=== PATIENT | female | born 1945 | race Caucasian/White ===

== ENCOUNTER 2018-06-21 12:12 | Inpatient (IN) | payer MEDICARE | END 2018-06-25 11:35 | disposition home or self-care (01) | LOC: EDH 12:12 → 2DH 06-22 11:57 → 3BH 06-23 20:07 → EDHIP 15:48 → 2BH 19:09 | DX: G81.91 Hemiplegia, unspecified affecting right dominant side (principal); N39.0 Urinary tract infection, site not specified; G56.01 Carpal tunnel syndrome, right upper limb; R31.0 Gross hematuria ==

== ENCOUNTER 2021-04-08 15:48 | Emergency (ER) | payer MEDICARE ==
[~2021-04-08] VITALS: Ht 157.5 cm; Wt 73.0 kg
[~2021-04-08 15:48] MED LIST: ALPR0.255 PO; ASPI-556 PO; CARV25TA PO; CEFD300C3 PO; CLOP75TA14 PO; ROSU10TA28 PO
[2021-04-08 16:31] VITALS: BP 139/53
== END 2021-04-08 16:57 | disposition home or self-care (01) ==
LOC: EDH 15:48
DX: R73.09 Other abnormal glucose (principal); F13.10 Sedative, hypnotic or anxiolytic abuse, uncomplicated; I50.9 Heart failure, unspecified; Z86.73 Personal history of transient ischemic attack (TIA), and cerebral infarction without residual deficits; Z79.899 Other long term (current) drug therapy; Z79.82 Long term (current) use of aspirin; Z88.7 Allergy status to serum and vaccine
CPT/HCPCS: 93005

== ENCOUNTER → 2022-05-02 | Outpatient (CLI) | payer MEDICARE ==
[~2022-05-02] MED LIST changes: +CLOP-31 PO; -CLOP75TA14 PO; +REGADENOSON 0.4 MG/5 ML PF SYG IVP SCH
== END | disposition home or self-care (01) ==
LOC: SHCH 07:45
PROVIDERS: ATTEND Internal Medicine
DX: I45.10 Unspecified right bundle-branch block (principal); R07.9 Chest pain, unspecified
CPT/HCPCS: 78452; 96374; 93017; J2785; A9500 ×2